=== PATIENT | male | born 1965 | race Asian ===

== ENCOUNTER 2019-01-23 21:18 | Emergency (ER) | payer OTHER ==
[~2019-01-23] VITALS: Ht 172.7 cm; Wt 90.7 kg
[2019-01-23 21:25] VITALS: Ht 172.7 cm; Wt 90.7 kg
[2019-01-23 23:18] VITALS: BP 165/98
== END 2019-01-23 23:18 | disposition home or self-care (01) ==
LOC: ED 21:18
DX: R04.0 Epistaxis (principal); I10 Essential (primary) hypertension

== ENCOUNTER 2019-01-25 09:45 | Emergency (ER) | payer OTHER ==
[~2019-01-25] VITALS: Ht 167.6 cm; Wt 91.6 kg
[2019-01-25 09:55] VITALS: BP 146/95; Ht 167.6 cm; Wt 91.6 kg
== END 2019-01-25 11:21 | disposition home or self-care (01) ==
LOC: ED 09:45
DX: R04.0 Epistaxis (principal); I10 Essential (primary) hypertension